=== PATIENT | female | born 1970 | race Caucasian/White ===

== ENCOUNTER → 2016-12-14 | Outpatient (CLI) | payer OTHER ==
[~2016-12-14] MED LIST: CALC-250 PO; CHOL100048 PO; EST.1TD TOP; ESTR-32 PO; FLUO10CA19 PO; HYDR25TA4 PO; IBP200T; IBP800T PO; IBUP-30 PO; LEVO25TA5 PO; MULT-608 PO; NATURE-THROID PO; OMEP40CA36 PO; TOPI100T11 PO; TPR100T; TRAM-21 PO
--- NOTE | 2016-12-17 20:00 | Diagnostic Imaging Report ---
Bilateral screening mammogram. The current study was also evaluated with a Computer Aided Detection (CAD) system. INDICATION: Screening. No current complaints stated on the questionnaire. COMPARISON: 11/10/15. FINDINGS: The breasts are composed of heterogeneously dense parenchyma which may decrease mammographic sensitivity. There are occasional benign-appearing calcifications seen. Allowing for technique and positional differences, no suspicious change is seen. IMPRESSION: No significant change. ACR BI-RADS Category 2: Benign findings. Result letter will be mailed to the patient. Note: At least 10% of breast cancer is not imaged by mammography. Dictated by: Dictated on workstation # [id number]
== END ==
LOC: RAD 13:47
PROVIDERS: ATTEND Nurse Practitioner Family
DX: Z12.31 Encounter for screening mammogram for malignant neoplasm of breast (principal)
CPT/HCPCS: 77067

== ENCOUNTER → 2017-10-28 | Outpatient (CLI) | payer OTHER ==
--- NOTE | 2017-10-28 09:46 | Diagnostic Imaging Report ---
PROCEDURE: CT sinuses without contrast TECHNIQUE: Multiple contiguous axial images were obtained through the sinuses without the use of intravenous contrast. Coronal and sagittal reformations were then performed. INDICATION: Chronic sinusitis The maxillary sinuses are clear. Ostiomeatal units are patent. Ethmoid air cells are clear. Sphenoid sinuses clear. Frontal sinuses clear. There is mild deviation of the nasal septum to the right. IMPRESSION: Slight deviation of the nasal septum. CT paranasal sinuses otherwise unremarkable. Dictated by: Dictated on workstation # [id number]
== END ==
LOC: RAD 08:11
PROVIDERS: ATTEND Otolaryngology Otolaryngology/Facial Plastic Surgery
DX: J32.9 Chronic sinusitis, unspecified (principal)
CPT/HCPCS: 70486

== ENCOUNTER → 2019-08-03 | Outpatient (CLI) | payer OTHER ==
[~2019-08-03] MED LIST changes: -ESTR-32 PO; +ESTR-85 PO
[2019-08-03 08:02] LABS: ALANINE AMINOTRANSFERASE 20 U/L (0-55); ALBUMIN 4.2 GM/DL (3.2-4.5); ALKALINE PHOSPHATASE 100 U/L (40-136); BILIRUBIN,TOTAL 0.7 MG/DL (0.1-1.0); BUN/CREATININE RATIO 12; CALCIUM 9.5 MG/DL (8.5-10.1); CARBON DIOXIDE 26 MMOL/L (21-32); CHLORIDE 106 MMOL/L (98-107); CHOLESTEROL 143 MG/DL (< 200); CREATININE SERUM 0.82 MG/DL (0.60-1.30); GFR ESTIMATED > 60; GLUCOSE 101 MG/DL (70-105); HDL CHOLESTEROL 54 MG/DL (40-60); POTASSIUM 4.3 MMOL/L (3.6-5.0); SODIUM 142 MMOL/L (135-145); TOTAL PROTEIN 7.1 GM/DL (6.4-8.2); TRIGLYCERIDES 96 MG/DL (<150); VLDL CHOLESTEROL 19 MG/DL (5-40)
== END ==
LOC: LAB 07:27
PROVIDERS: ATTEND Nurse Practitioner Primary Care
DX: I10 Essential (primary) hypertension (principal); E03.9 Hypothyroidism, unspecified; R73.03 Prediabetes
CPT/HCPCS: 36415; 80053; 80061; 84443

== ENCOUNTER → 2020-01-26 | Outpatient (CLI) | payer OTHER ==
[~2020-01-26] MED LIST changes: -ESTR-85 PO; -FLUO10CA19 PO; +FLUO10CA30 PO; +OMEP40CA27 PO; -OMEP40CA36 PO; +SYNTEST.HS PO
--- NOTE | 2020-01-26 17:01 | Diagnostic Imaging Report ---
EXAMINATION: Digital mammogram bilateral screening with CAD. INDICATION: Screening. COMPARISON: This study is compared to the prior exams of 12/14/2016 and 11/10/2015. PERSONAL HISTORY: At this time, there are no current complaints. FINDINGS: There are scattered fibronodular densities in both breasts which could obscure a lesion. There is a 5 mm nodular density in the mid lateral aspect of the right breast at posterior depth. This nodular density does not have a threatening appearance but was not present on the prior exam. I would recommend that compression views of this area be obtained in the CC and ML projections to better characterize this finding. Ultrasound should also be performed. The left breast shows no primary or secondary sign of malignancy. IMPRESSION: Additional mammographic views and ultrasound of the right breast would be recommended for further study. ACR BI-RADS Category 0: Incomplete. (Needs additional imaging evaluation). Result letter will be mailed to the patient. Note: At least 10% of breast cancer is not imaged by mammography. Dictated by: Dictated on workstation # [id number]
== END ==
LOC: RAD 07:16
PROVIDERS: ATTEND Nurse Practitioner Family
DX: Z12.31 Encounter for screening mammogram for malignant neoplasm of breast (principal); N63.10 Unspecified lump in the right breast, unspecified quadrant
CPT/HCPCS: 77063; 77067

== ENCOUNTER → 2020-02-03 | Outpatient (CLI) | payer OTHER ==
--- NOTE | 2020-02-03 13:16 | Diagnostic Imaging Report ---
INDICATION: Right breast density. Patient presents for additional views. COMPARISON: Correlation is made with the recent screening study from 01/26/2020 as well as mammograms dating back to 2017. TECHNIQUE: Unilateral right 2D and 3D diagnostic mammography was performed including spot compression CC and ML as well as conventional 90 degree lateral views. FINDINGS: There is some mild persistent nodular density in the posterior and outer right breast on the CC spot compression view. No definite density on the lateral views is seen. No suspicious calcifications are identified. IMPRESSION: Mild persistent density in the outer right breast at mid to posterior depth. This appears to be inferiorly located on the tomographic images and further evaluation of the lower outer right breast with ultrasound is recommended and will be performed today. ACR BI-RADS Category 0: Incomplete. (Needs additional imaging evaluation). Result letter will be mailed to the patient. Note: At least 10% of breast cancer is not imaged by mammography. Dictated by: Dictated on workstation # [id number]
--- NOTE | 2020-02-03 13:39 | Diagnostic Imaging Report ---
INDICATION: Right breast density. COMPARISON: Correlation is made with the diagnostic mammogram from earlier this same day. FINDINGS: Sonographic interrogation of the lower outer right breast was performed. No sonographic abnormality is detected. No solid or cystic mass is detected. IMPRESSION: No sonographic abnormality is detected. The patient may return to routine annual screening mammography. ACR BI-RADS Category 1: Negative. Dictated by: Dictated on workstation # [id number]
== END ==
LOC: RAD 12:48
PROVIDERS: ATTEND Nurse Practitioner Primary Care
DX: R92.8 Other abnormal and inconclusive findings on diagnostic imaging of breast (principal)

== ENCOUNTER 2020-08-08 05:31 | Outpatient (RCR) | payer OTHER ==
[~2020-08-08] VITALS: Ht 157.5 cm; Wt 76.4 kg
[~2020-08-08 05:31] MED LIST changes: +ATOR40TA70 PO; -FLUO10CA30 PO; +FLUO10CA31 PO; +FLUO40CA PO; +PROP20TA5 PO; +TOPI25TA10 PO
[2020-08-08] MEDS ORDERED: CETI10TA49 PO (09:19)
[2020-08-08] MEDS ORDERED: FAMO20TA3 PO (09:19)
[2020-08-08] MEDS ORDERED: FLUT16SP22 NSEACH (09:19)
[2020-08-08] MEDS ORDERED: ONDN4T PO (09:19)
== END 2020-08-08 09:18 | disposition home or self-care (01) ==
LOC: PREOP 05:31
PROVIDERS: ATTEND Urology
DX: Z01.812 Encounter for preprocedural laboratory examination (principal); N81.10 Cystocele, unspecified; N39.3 Stress incontinence (female) (male); Z20.828 Contact with and (suspected) exposure to other viral communicable diseases
CPT/HCPCS: 87635

== ENCOUNTER 2020-08-10 07:37 | Day surgery (SDC) | payer OTHER ==
[2020-08-10] VITALS (12 sets, daily range): BP systolic 107–124; BP diastolic 56–92
[~2020-08-10] VITALS: Ht 157.5 cm; Wt 76.4 kg
--- NOTE | 2020-08-10 07:04 | Progress Note-Pre Operative ---
Pre-Operative Progress Note H&P Reviewed The H&P was reviewed, patient examined and no changes noted. Date Seen by Provider: Aug 10, 2020 Time Seen by Provider: 07:42 Date H&P Reviewed: Aug 10, 2020 Time H&P Reviewed: 07:42 Pre-Operative Diagnosis: CYSTOCELE, INCONTINENCE, AND OAB ASHWINI DAVIS MD Aug 10, 2020 07:04
[~2020-08-10 07:37] MED LIST changes: +CETI10TA49 PO; +FAMO20TA3 PO; +FLUT16SP22 NSEACH; +ONDN4T PO
--- NOTE | 2020-08-10 07:42 | Progress Note-Post Operative ---
Post-Operative Progess Note Surgeon (s)/Master Lay Out Specialist (s) Surgeon ASHWINI DAVIS MD Master Lay Out Specialist: NONE Pre-Operative Diagnosis CYSTOCELE, INCONTINENCE, AND OAB Post-Operative Diagnosis SAME Procedure & Operative Findings Date of Procedure 08/10/20 Procedure Performed/Findings ANTERIOR REPAIR, PVS, AND CYSTOCOPY Anesthesia Type GENERAL Estimated Blood Loss Estimated blood loss (mL): 50cc Specimens/Packing Specimens Removed NONE PackinGM ESTRACE VAGINAL PACK ASHWINI DAVIS MD Aug 10, 2020 07:42
[2020-08-10] MEDS ORDERED: ESTRADIOL VAGINAL CREAM 42.5 GM (ESTRACE) VG ONE (07:47)
[2020-08-10] MEDS ORDERED: LIDOCAINE/EPI 1%-1:100,000 (XYLOCAINE) 20ML ONE (07:48)
[2020-08-10] MEDS ORDERED: cefTRIAXone 1,000 MG IV (ROCEPHIN) VIAL ONE (07:55)
[2020-08-10] MEDS ORDERED: WATER (STERILE) FOR INJECTION 10 ML ONE (07:55)
[2020-08-10] MEDS ORDERED: ONDANSETRON 4 MG/2 ML (SDV) Z0FRAN ONE ×2 (07:56→08:02)
[2020-08-10] MEDS ORDERED: SCOPOLAMINE 1.5 MG (TRANSDERM-SCOP) PATCH ONE (07:56)
[2020-08-10] MEDS ORDERED: SCOPOLAMINE 1.5 MG (TRANSDERM-SCOP) PATCH TOP ONE (08:00)
[2020-08-10] MEDS ORDERED: FAMOTIDINE 20MG/2ML IV (PEPCID) IV ONE (08:00)
[2020-08-10] MEDS ORDERED: MIDAZOLAM 2 MG/2 ML (VERSED) VIAL ONE (08:00)
[2020-08-10] MEDS ORDERED: ONDANSETRON 4 MG/2 ML (SDV) Z0FRAN IV ONE (08:00)
[2020-08-10] MEDS ORDERED: fentaNYL INJECTION 100 MCG/2 ML AMP ONE (08:01)
[2020-08-10] MEDS ORDERED: LIDOCAINE PF 2% 5 ML (XYLOCAINE) VIAL ONE (08:02)
[2020-08-10] MEDS ORDERED: proPOfol 200 MG/20 ML (DIPRIVAN) VIAL IV ONE (08:02)
[2020-08-10] MEDS ORDERED: NEOSTIGMINE 3 MG/3 ML VIAL ONE (08:03)
[2020-08-10] MEDS ORDERED: SEVOFLURANE (ULTANE) 15 ML INHAL SOLN ONE (08:03)
[2020-08-10] MEDS ORDERED: GLYCOPYRROLATE 0.2 MG/ML (ROBINUL) 2 ML VIAL ONE ×3 (08:03→08:57)
[2020-08-10] MEDS ORDERED: ROCURONIUM 10 MG/ML 5 ML SYRINGE IV ONE (08:03)
[2020-08-10] MEDS: LACTATED RINGERS 1,000 ML IV SCH ×3 (08:04→19:37)
[2020-08-10] MEDS ORDERED: LACTATED RINGERS 1,000 ML IV PRN (08:07)
[2020-08-10] MEDS ORDERED: cefTRIAXone FOR IV USE 1,000 MG in WATER (STERILE) FOR INJECTION 10 ML IV ONE (08:15)
[2020-08-10] MEDS ORDERED: ONDANSETRON 4 MG TABLET PO PRN (08:15)
[2020-08-10] MEDS ORDERED: ATROPINE INJ 0.4 MG/ML SDV ONE (08:57)
[2020-08-10] MEDS ORDERED: NON-FORMULARY MEDICATION 1 EA EA (Fluoxetine HCl 40 MG) PO SCH (09:00)
[2020-08-10] MEDS ORDERED: HYDROmorphone 2 MG/ML VIAL (DILAUDID) IV ONE (09:30)
[2020-08-10] MEDS ORDERED: ONDANSETRON 4 MG/2 ML (SDV) Z0FRAN IVP PRN (09:30)
--- NOTE | 2020-08-10 10:20 | NUR ---
Received from FELI Carreno following anterior repair, and pubo vaginal sling. Alert and oriented. Report for Sukhdev Coker RN.
--- NOTE | 2020-08-10 10:34 | OPERATIVE REPORT ---
DATE OF SERVICE: 08/10/2020 PREOPERATIVE DIAGNOSIS: Cystocele and urinary incontinence with overactive bladder. POSTOPERATIVE DIAGNOSIS: Cystocele and urinary incontinence with overactive bladder. OPERATION PERFORMED: Anterior repair, pubovaginal sling and cystoscopy. SURGEON: Marcell Davis MD. ANESTHESIA: General. COMPLICATIONS: None. DESCRIPTION OF PROCEDURE: Under satisfactory general anesthesia, the patient in extended lithotomy position, genitalia, abdomen and thigh were prepped and draped in the usual sterile fashion with separate vaginal prep. Tate catheter was inserted, draining clear urine and put to dependent drainage. The anterior vaginal wall was infiltrated with 2% lidocaine with epinephrine. A midline incision was made proximal to the meatus carried down with dissection. Dissected sharply off the underlying fascia, it was noted that the vaginal wall was kind of thin and the fascia not strong; however, I was able to dissect it. I dissected the mucosa off the fascia, which was then approximated with interrupted 2-0 Vicryl giving a good support to the bladder. Then, I passed the Solyx device on both sides using the described technique. The sling was sitting nicely under the mid urethra with no twist, no tension and passage of a curved hemostat easily between it and the underlying tissue. I removed the Tate catheter to perform cystoscopy to confirm the integrity of the bladder, ureteral orifices and urethra with no foreign body. I left the bladder half full on the way out. I inspected the mid urethra and the urethra was normal and the sling was lying under the mid urethra. I performed a manual Valsalva maneuver that was negative. I reinserted the Tate catheter draining clear fluid. The excess vaginal mucosa was excised sharply and then the rest was approximated with a running 2-0 Vicryl Rapide type suture. Estimated blood loss was 50 mL, none of which was replaced. Needle, sponge and instruments counts were correct x2. The patient tolerated the procedure and anesthesia well and was sent to recovery room in stable condition. Job ID: [id number] DocumentID: [id number] Dictated Date: 08/10/2020 09:24:47 Rivet Machine Operator Date: 08/10/2020 10:34:04 Dictated By: MARCELL DAVIS MD
[2020-08-10] MEDS ORDERED: IBUPROFEN 600 MG (MOTRIN) TAB PO PRN (13:15)
[2020-08-10] MEDS: FAMOTIDINE 20 MG (PEPCID) TABLET PO SCH (15:50)
[2020-08-10] MEDS: PROPRANOLOL 20 MG (INDERAL) TABLET PO SCH ×2 (15:50→21:02)
[2020-08-10] MEDS: FLUTICASONE NASAL SPRAY (FLONASE) 16 GM BTL NS SCH (15:50)
[2020-08-10] MEDS: LEVOTHYROXINE 25 MCG (LEVOTHROID) TAB PO SCH (15:50)
[2020-08-10] MEDS: toPIRamate 25 MG (TOPAMAX) TAB PO SCH (15:51)
--- NOTE | 2020-08-10 19:30 | NUR ---
Pt laying in bed watching tv. Pt asking about diet, denies nausea and had liquid tray for dinner, tolerated well. Fresh ice water given and sandwich tray given. Tate cath to DD. 750ml drained from chamber. Plan of care updated with pt.
[2020-08-10] MEDS ORDERED: NON-FORMULARY MEDICATION 1 EA EA (Cetirizine HCl (Zyrtec) 10 MG) PO SCH (21:00)
[2020-08-10] MEDS ORDERED: LORATADINE (CLARITIN) 10 MG TAB PO SCH (21:00)
--- NOTE | 2020-08-10 23:00 | NUR ---
Pt laying in bed awake, irwin cont to DD. Pt denies needs at this time.
--- NOTE | 2020-08-11 01:57 | NUR ---
Pt sleeping at this time, aroused per rn, denies needs.
[2020-08-11 03:40] VITALS: BP 106/55
--- NOTE | 2020-08-11 06:54 | Anesthesia-General Post-Op ---
General Patient Condition Mental Status/LOC: Same as Preop Cardiovascular: Satisfactory Nausea/Vomiting: Absent Respiratory: Satisfactory Pain: Controlled Complications: Absent Post Op Complications Complications None Follow Up Care/Instructions Patient Instructions None needed. Anesthesia/Patient Condition Patient Condition Patient is doing well, no complaints, stable vital signs, no apparent adverse anesthesia problems. No complications reported per nursing. ANDREI VILLALPANDO CRNA Aug 11, 2020 06:54
[2020-08-11] MEDS: LEVOTHYROXINE 25 MCG (LEVOTHROID) TAB PO SCH (07:53)
[2020-08-11] MEDS: FLUTICASONE NASAL SPRAY (FLONASE) 16 GM BTL NS SCH (07:53)
[2020-08-11] MEDS: PROPRANOLOL 20 MG (INDERAL) TABLET PO SCH (07:55)
[2020-08-11] MEDS ORDERED: LEVOFLOXACIN 250 MG/50 ML IVPB 50 ML IV SCH (07:56)
[2020-08-11] MEDS: FAMOTIDINE 20 MG (PEPCID) TABLET PO SCH (07:58)
[2020-08-11] MEDS: toPIRamate 25 MG (TOPAMAX) TAB PO SCH (07:58)
[2020-08-11 08:00] VITALS: BP 110/66
[2020-08-11] MEDS ORDERED: FLUOXETINE 40 MG CAPSULE PO SCH (09:00)
[2020-08-11] MEDS ORDERED: IBUP-1773 PO (10:31)
[2020-08-11] MEDS ORDERED: CIPR-225 PO (10:49)
[2020-08-11 11:15] VITALS: BP 110/66
--- NOTE | 2020-08-11 11:35 | NUR ---
Home instructions given with pt verbalizing understanding. To exit via wheelchair - accompanied by this RN.
--- NOTE | 2020-08-11 13:08 | Progress Note - Urology ---
Progress Note-Urology Progress Notes/Assess & Plan Progress/Assessment & Plan VOIDING WELL. DRY. PVR 42. HAPPY. HOME WITH INSTRUCTIONS Final Diagnosis CYSTOCELE AND INCONTINENCE ASHWINI DAVIS MD Aug 11, 2020 13:08
== END 2020-08-11 11:35 | disposition home or self-care (01) ==
LOC: SDC 07:37 → WS 10:21 → SDC 08-11 11:35
PROVIDERS: ATTEND Urology
DX: N81.10 Cystocele, unspecified (principal); N32.81 Overactive bladder; R32 Unspecified urinary incontinence; K21.9 Gastro-esophageal reflux disease without esophagitis; F32.9 Major depressive disorder, single episode, unspecified; G43.909 Migraine, unspecified, not intractable, without status migrainosus; E03.9 Hypothyroidism, unspecified; I10 Essential (primary) hypertension; Z79.899 Other long term (current) drug therapy; Z88.5 Allergy status to narcotic agent; Z88.8 Allergy status to other drugs, medicaments and biological substances; Z85.828 Personal history of other malignant neoplasm of skin
CPT/HCPCS: 57240; 57288; 87081; C1771

== ENCOUNTER 2020-10-21 16:13 | Emergency (ER) | payer OTHER ==
[~2020-10-21] VITALS: Ht 157 cm; Wt 77.0 kg
[~2020-10-21 16:13] MED LIST changes: +CIPR-225 PO; +IBUP-1773 PO
--- NOTE | 2020-10-21 17:05 | ED Respiratory ---
General Chief Complaint: Respiratory Problems Stated Complaint: SOB/BILAT LEG CRAMPS/LOW O2 Nursing Triage Note: PT REPORTS TO ED FOR SOB X'S 3 WEEKS AND CHEST PRESSURE X'S 1 WEEK. PT WAS TESTED EARLIER AT [facility] AND WAS NEGATIVE FOR FLU AND COVID. Source: patient Exam Limitations: no limitations History of Present Illness Date Seen by Provider: Oct 21, 2020 Time Seen by Provider: 17:05 Initial Comments Patient is a 50-year-old female who presents to the emergency room today with a chief complaint of feeling short of breath and having a cough for the last 3 we eks. Patient states that she has had some chest tightness and "pressure" over the course of the last week. Patient finally went and saw her primary care physician today had an influenza test and a Covid test and both were negative. Patient states that she received her second Covid vaccine around 29 September. She states her symptoms started shortly thereafter. Patient has never had a positive Covid test. Patient denies any fevers, chills, runny nose, URI type symptoms other than cough. She denies any abdominal pain, nausea, vomiting, diarrhea although she does have a little bit of posttussive emesis occasionally. Patient denies any recent prolonged immobility/travel. No history of DVT. She is having some bilateral calf cramping when she walks. She describes this as "like a mild charley horse". Patient reportedly ambulated at the clinic and was noted to have oxygen saturations of 91 to 92%. All other review of systems reviewed and negative except as stated above. Timing/Duration: getting worse Severity: moderate Prior Episodes/Possible Cause: occasional episodes Associated Symptoms: chest pain/soreness, muscle aches, shortness of breath Allergies and Home Medications Allergies Coded Allergies: codeine (Unverified Allergy, Mild, 12/24/08) naproxen (Unverified Allergy, Mild, 12/24/08) tramadol (Unverified Allergy, Mild, 12/24/08) aspirin (Unverified Allergy, Unknown, N/V, 07/12/15) hydrocodone (Unverified Allergy, Unknown, N/V, 07/12/15) morphine (Verified Allergy, Unknown, 08/03/20) Home Medications Atorvastatin Calcium 40 Mg Tablet, 40 MG PO DAILY, (Reported) Cetirizine HCl 10 Mg Tablet, 10 MG PO HS, (Reported) Ciprofloxacin HCl 500 Mg Tablet, 500 MG PO BID Prescribed by: ADAM CERDA on 08/11/20 1049 Famotidine 20 Mg Tablet, 20 MG PO DAILY, (Reported) Fluoxetine HCl 40 Mg Capsule, 40 MG PO DAILY, (Reported) Fluticasone Propionate 16 Gm [place].susp, 1 SPRAY NSEACH DAILY, (Reported) Ibuprofen 600 Mg Tablet, 600 MG PO Q6H PRN for PAIN-MILD, (Reported) Levothyroxine Sodium 25 Mcg Tablet, 25 MCG PO DAILY, (Reported) Ondansetron HCl 4 Mg Tab, 4 MG PO Q6H PRN for NAUSEA/VOMITING, (Reported) Propranolol HCl 20 Mg Tablet, 20 MG PO BID, (Reported) Topiramate 25 Mg Tablet, 25 MG PO DAILY, (Reported) Patient Home Medication List Home Medication List Reviewed: Yes Review of Systems Review of Systems Constitutional: see HPI EENTM: no symptoms reported Respiratory: cough, short of breath Cardiovascular: chest pain (chest pressure/tightniess) Gastrointestinal: no symptoms reported Genitourinary: no symptoms reported : No Musculoskeletal: muscle cramps Skin: no symptoms reported All Other Systems Reviewed Negative Unless Noted: Yes Past Bzqoybw-Xjqetm-Ksfkza Hx Patient Social History Alcohol Use: Denies Use Smoking Status: Never a Smoker Recent Infectious Disease Expo: No Recent Hopitalizations: No Immunizations Up To Date Date of Influenza Vaccine: Jun 23, 2020 Seasonal Allergies Seasonal Allergies: Yes Past Medical History Surgeries: Yes (upper teeth pulled) Adenoidectomy, Section, Gallbladder, Hysterectomy, Oophorectomy, Orthopedic, Tonsillectomy Respiratory: No Currently Using CPAP: No Currently Using BIPAP: No Cardiac: Yes Chronic Edema/Swelling, Hypertension Neurological: Yes Headaches /Migraines Reproductive Disorders: Yes (MENORRHAGIA) Female Reproductive Disorders: Menstrual Problems PLANT MACHINIST History: Hysterectomy Genitourinary: Yes (cystocele) Gastrointestinal: Yes Gastroesophageal Reflux Musculoskeletal: No Endocrine: Yes Hypothyroidsim HEENT: Yes (denture) Loss of Vision: Denies Cancer: Yes (right eyebrow) Skin Psychosocial: Yes Depression Integumentary: No Blood Disorders: No Family Medical History FH: COPD (chronic obstructive pulmonary disease) G8 BROTHER FH: aortic stenosis G8 BROTHER (50's) FH: colon cancer 19 FATHER Myocardial infarction 19 MOTHER (79) No Pertinent Family Hx Physical Exam Vital Signs - First Documented 10/21/20 16:18 Temp 35.7 Pulse 75 Resp 20 B/P (MAP) 158/89 (112) Pulse Ox 100 O2 Delivery Room Air Capillary Refill : Less Than 3 Seconds Height: 0'62.00" Weight: 154lbs. 8.0oz. [id number]; 31.00 BMI Method: General Appearance: WD/WN, no apparent distress Eyes: Bilateral Eye Normal Inspection, Bilateral Eye PERRL, Bilateral Eye EOMI HEENT: PERRL/EOMI Neck: full range of motion Respiratory: lungs clear, normal breath sounds, no respiratory distress, no accessory muscle use Cardiovascular: regular rate, rhythm, no murmur Gastrointestinal: normal bowel sounds, non tender, soft Extremities: normal range of motion, non-tender, normal inspection, no pedal edema, no calf tenderness, normal capillary refill Neurologic/Psychiatric: no motor/sensory deficits, alert, normal mood/affect, oriented x 3 Skin: normal color, warm/dry Progress/Results/Core Measures Suspected Sepsis Recent Fever Within 48 Hours: No Infection Criteria Present: None New/Unexplained Altered Menta: No Sepsis Screen: No Definite Risk SIRS Temperature: Pulse: 75 Respiratory Rate: 20 Laboratory Tests 10/21/20 16:30: White Blood Count 6.3 Blood Pressure 158 /89 Mean: 112 Laboratory Tests 10/21/20 16:30: Creatinine 0.93, Platelet Count 302 Results/Orders Lab Results Laboratory Tests Test 10/21/20 16:30 Range/Units White Blood Count 6.3 4.3-11.0 10^3/uL Red Blood Count 4.28 3.80-5.11 10^6/uL Hemoglobin 12.7 11.5-16.0 g/dL Hematocrit 40 35-52 % Mean Corpuscular Volume 94 80-99 fL Mean Corpuscular Hemoglobin 30 25-34 pg Mean Corpuscular Hemoglobin Concent 32 32-36 g/dL Red Cell Distribution Width 13.6 10.0-14.5 % Platelet Count 302 130-400 10^3/uL Mean Platelet Volume 10.5 9.0-12.2 fL Immature Granulocyte % (Auto) 0 % Neutrophils (%) (Auto) 52 42-75 % Lymphocytes (%) (Auto) 36 12-44 % Monocytes (%) (Auto) 9 0-12 % Eosinophils (%) (Auto) 2 0-10 % Basophils (%) (Auto) 1 0-10 % Neutrophils # (Auto) 3.3 1.8-7.8 10^3/uL Lymphocytes # (Auto) 2.3 1.0-4.0 10^3/uL Monocytes # (Auto) 0.6 0.0-1.0 10^3/uL Eosinophils # (Auto) 0.1 0.0-0.3 10^3/uL Basophils # (Auto) 0.1 0.0-0.1 10^3/uL Immature Granulocyte # (Auto) 0.0 0.0-0.1 10^3/uL D-Dimer 0.45 0.00-0.49 UG/ML Sodium Level 138 135-145 MMOL/L Potassium Level 4.0 3.6-5.0 MMOL/L Chloride Level 105 98-107 MMOL/L Carbon Dioxide Level 23 21-32 MMOL/L Anion Gap 10 5-14 MMOL/L Blood Urea Nitrogen 17 7-18 MG/DL Creatinine 0.93 0.60-1.30 MG/DL Estimat Glomerular Filtration Rate > 60 BUN/Creatinine Ratio 18 Glucose Level 109 H 70-105 MG/DL Calcium Level 9.5 8.5-10.1 MG/DL Troponin I < 0.028 <0.028 NG/ML My Orders Orders - MINE PUENTES MD Ed Iv/Invasive Line Start (10/21/20 17:11) Cbc With Automated Diff (10/21/20 17:11) Basic Metabolic Panel (10/21/20 17:11) Fibrin Degradation Products (10/21/20 17:11) Chest 1 View, Ap/Pa Only (10/21/20 17:11) Ekg Tracing (10/21/20 17:12) Troponin I (10/21/20 17:28) Vital Signs/I&O 10/21/20 16:18 Temp 35.7 Pulse 75 Resp 20 B/P (MAP) 158/89 (112) Pulse Ox 100 O2 Delivery Room Air Capillary Refill : Less Than 3 Seconds Blood Pressure Mean: 112 Progress Note : Time: 17:26 Progress Note 50-year-old female with a chief complaint of chest tightness, shortness of breath, dropping her oxygen saturations down to 92% with exertion. Evaluation includes a physical exam, CBC, BMP, D-dimer, troponin, EKG and single view chest x-ray. Chest x-ray is reviewed and unremarkable. EKG shows a normal sinus rhythm at [address]-T wave changes over the precordium and lateral leads. CBC is normal, BMP is normal, D-dimer is below the upper limits of normal. Patient looks well satting 99% on room air while sitting comfortably in the bed. No clinical or objective findings to warrant further investigation at this time. No obvious acute coronary syndrome, no concern for acute pulmonary embolism, aortic dissection, pneumothorax, pneumonia. Patient will be discharged home with an albuterol inhaler. She is comfortable with this plan of care. Recommend lvgw-pub-vfjseho cough medications that include dextromethorphan. Per radiology the patient has mild infiltrate along the right lung base versus atelectasis. Secondary to all of her symptomatology I am going to go ahead and place her on a 5-day course of azithromycin to go along with her albuterol inhaler. All questions are sought and answered. Patient is stable for discharge. ECG Initial ECG Impression Date: Oct 21, 2020 Initial ECG Impression Time: 16:26 Initial ECG Rate: 81 Initial ECG Rhythm: Normal Sinus Initial ECG Intervals: Normal Initial ECG Impression: Nonspecific Changes Diagnostic Imaging Diagonstic Imaging: Xray Plain Films/CT/US/NM/MRI: chest Comments [facility]. [place], [place] NAME: JOYCE KELLY [facility] REC#: [id number] PT STATUS: REG ER : 1970 PHYSICIAN: MINE PUENTES MD ADMIT DATE: 10/21/20/ER Draft Date of Exam:10/21/20 CHEST 1 VIEW, AP/PA ONLY EXAM: Chest 1 view, AP/PA only. INDICATION: Shortness of breath. Cough. COMPARISON: Chest radiograph 07/12/2015. FINDINGS: Normal heart size and central pulmonary vascularity. Elevation of the right hemidiaphragm. There is mild atelectasis or infiltrate in the medial right lung base. No pleural effusion or pneumothorax. IMPRESSION: Elevation of the right hemidiaphragm with mild atelectasis or infiltrate in the medial right lung base. Dictated on workstation # [id number] Dict: 10/21/20 1727 Trans: 10/21/20 1733 [facility] [id number] Interpreted by: CHICO WELDON MD Departure Impression Primary Impression: Dyspnea on exertion Additional Impression: Pneumonia Qualified Codes: J18.9 - Pneumonia, unspecified organism Disposition: HOME, SELF-CARE Condition: Stable Departure-Patient Inst. Decision time for Depature: 17:52 Referrals: [facility] [place] (PCP/Family) Primary Care Physician Patient Instructions: Cough, Adult (DC) Add. Discharge Instructions: Continue your daily home medications as prescribed. Get an yaiz-quv-qkndfhc cough medication that contains dextromethorphan or "DM" to help alleviate cough. Use the albuterol inhaler 2 puffs as needed every 4-6 hours for shortness of breath, wheezing, chest tightness. Please follow-up with your primary care physician. Return to the emergency room for any worsening symptoms, worsening shortness of breath, chest pain or other emergent concerning symptoms. Scripts Albuterol Sulfate (PROAIR HFA) 1 Puff Puff 2 PUFF IH Q6H for shortness of breath, #1 PUFF 1 PUFF = 90 MCG Prov: MINE PUENTES MD 10/21/20 Azithromycin (Azithromycin) 250 Mg Tablet 250 MG PO UD, #6 TAB TAKE 2 TABLETS ON DAY ONE THEN TAKE 1 TABLET DAILY FOR FOUR MORE DAYS Prov: MINE PUENTES MD 10/21/20 MINE PUENTES MD Oct 21, 2020 17:05
[2020-10-21 17:19] LABS: BASOPHILS # (AUTO) 0.1 10^3/uL (0.0-0.1); BASOPHILS % (AUTO) 1 % (0-10); EOSINOPHILS # (AUTO) 0.1 10^3/uL (0.0-0.3); EOSINOPHILS % (AUTO) 2 % (0-10); HEMATOCRIT 40 % (35-52); HEMOGLOBIN 12.7 g/dL (11.5-16.0); LYMPHOCYTES # (AUTO) 2.3 10^3/uL (1.0-4.0); LYMPHOCYTES % (AUTO) 36 % (12-44); MEAN CORPUSCULAR HEMOGLOBIN 30 pg (25-34); MEAN CORPUSCULAR HGB CONC 32 g/dL (32-36); MEAN CORPUSCULAR VOLUME 94 fL (80-99); MEAN PLATELET VOLUME 10.5 fL (9.0-12.2); MONOCYTES # (AUTO) 0.6 10^3/uL (0.0-1.0); MONOCYTES % (AUTO) 9 % (0-12); NEUTROPHILS # (AUTO) 3.3 10^3/uL (1.8-7.8); NEUTROPHILS % (AUTO) 52 % (42-75); PLATELET COUNT 302 10^3/uL (130-400); WHITE BLOOD COUNT 6.3 10^3/uL (4.3-11.0)
[2020-10-21 17:25] LABS: CHLORIDE 105 MMOL/L (98-107); SODIUM 138 MMOL/L (135-145)
[2020-10-21 17:26] LABS: CALCIUM 9.5 MG/DL (8.5-10.1); GLUCOSE 109 MG/DL (70-105)
[2020-10-21 17:28] LABS: CARBON DIOXIDE 23 MMOL/L (21-32)
[2020-10-21 17:30] LABS: CREATININE SERUM 0.93 MG/DL (0.60-1.30); GFR ESTIMATED > 60
[2020-10-21 17:31] LABS: BUN/CREATININE RATIO 18
--- NOTE | 2020-10-21 17:33 | Diagnostic Imaging Report ---
EXAM: Chest 1 view, AP/PA only. INDICATION: Shortness of breath. Cough. COMPARISON: Chest radiograph 07/12/2015. FINDINGS: Normal heart size and central pulmonary vascularity. Elevation of the right hemidiaphragm. There is mild atelectasis or infiltrate in the medial right lung base. No pleural effusion or pneumothorax. IMPRESSION: Elevation of the right hemidiaphragm with mild atelectasis or infiltrate in the medial right lung base. Dictated by: Dictated on workstation # [id number]
[2020-10-21] MEDS ORDERED: RT-ALBUINH IH (17:56)
[2020-10-21] MEDS ORDERED: AZIT250T12 PO (17:56)
[2020-10-21 18:02] VITALS: BP 142/86
== END 2020-10-21 18:01 | disposition home or self-care (01) ==
LOC: EDUNIT# 16:13 → ER 16:15
DX: R06.09 Other forms of dyspnea (principal); J18.9 Pneumonia, unspecified organism; I10 Essential (primary) hypertension; K21.9 Gastro-esophageal reflux disease without esophagitis; F32.9 Major depressive disorder, single episode, unspecified; G43.909 Migraine, unspecified, not intractable, without status migrainosus; E03.9 Hypothyroidism, unspecified; Z88.5 Allergy status to narcotic agent; Z88.8 Allergy status to other drugs, medicaments and biological substances; Z85.828 Personal history of other malignant neoplasm of skin; Z82.49 Family history of ischemic heart disease and other diseases of the circulatory system; Z80.0 Family history of malignant neoplasm of digestive organs; Z79.890 Hormone replacement therapy
CPT/HCPCS: 36415; 71045; 80048; 84484; 85025; 85379

== ENCOUNTER → 2020-10-27 | Outpatient (CLI) | payer OTHER ==
[~2020-10-27] MED LIST changes: +AZIT250T12 PO; +CATHETER FLUSH 10 ML SYR IV PRN; +HOLD METFORMIN - RECEIVED CONTRAST 20 ML VIAL IV SCH; +IOHEXOL 350 MG/ML 100 ML (OMNIPAQUE 350) VIAL IV ONE; +NS 100 ML (IVPB) BAG IV ONE; +RT-ALBUINH IH
--- NOTE | 2020-10-27 16:31 | Diagnostic Imaging Report ---
PROCEDURE: CT angiography of the chest with contrast. TECHNIQUE: Multiple contiguous axial images were obtained through the chest after uneventful bolus administration of intravenous contrast. 3D reconstructed CTA MIP acquisitions were also performed. Auto Exposure Controls were utilized during the CT exam to meet ALARA standards for radiation dose reduction. INDICATION: Chest pain, shortness of breath Lungs are clear. There are no effusions or pneumothoraces. There is no evidence of right ventricular strain. There are no pulmonary emboli. Aorta is unremarkable. There is no hilar or mediastinal lymphadenopathy. IMPRESSION: Negative CTA chest Dictated by: Dictated on workstation # [id number]
== END ==
LOC: RAD 15:53
PROVIDERS: ATTEND Nurse Practitioner Family
DX: R07.9 Chest pain, unspecified (principal); R06.02 Shortness of breath
CPT/HCPCS: 71275

== ENCOUNTER 2020-10-28 13:26 | Emergency (ER) | payer OTHER ==
[~2020-10-28] VITALS: Ht 157 cm; Wt 78.0 kg
[~2020-10-28 13:26] MED LIST changes: -CATHETER FLUSH 10 ML SYR IV PRN; -HOLD METFORMIN - RECEIVED CONTRAST 20 ML VIAL IV SCH; -IOHEXOL 350 MG/ML 100 ML (OMNIPAQUE 350) VIAL IV ONE; -NS 100 ML (IVPB) BAG IV ONE
[2020-10-28 14:32] LABS: BASOPHILS % (AUTO) 1 % (0-10); EOSINOPHILS # (AUTO) 0.1 10^3/uL (0.0-0.3); EOSINOPHILS % (AUTO) 2 % (0-10); HEMATOCRIT 42 % (35-52); HEMOGLOBIN 13.5 g/dL (11.5-16.0); LYMPHOCYTES # (AUTO) 2.1 X 10^3 (1.0-4.0); LYMPHOCYTES % (AUTO) 38 % (12-44); MEAN CORPUSCULAR HEMOGLOBIN 30 pg (25-34); MEAN CORPUSCULAR HGB CONC 33 g/dL (32-36); MEAN CORPUSCULAR VOLUME 92 fL (80-99); MEAN PLATELET VOLUME 10.1 fL (9.0-12.2); MONOCYTES # (AUTO) 0.5 X 10^3 (0.0-1.0); MONOCYTES % (AUTO) 9 % (0-12); NEUTROPHILS # (AUTO) 2.7 X 10^3 (1.8-7.8); NEUTROPHILS % (AUTO) 50 % (42-75); PLATELET COUNT 314 10^3/uL (130-400); WHITE BLOOD COUNT 5.4 10^3/uL (4.3-11.0)
[2020-10-28 14:35] LABS: ALBUMIN 4.3 GM/DL (3.2-4.5); CHLORIDE 108 MMOL/L (98-107); SODIUM 139 MMOL/L (135-145)
[2020-10-28 14:36] LABS: CALCIUM 9.3 MG/DL (8.5-10.1)
[2020-10-28 14:38] LABS: GLUCOSE 116 MG/DL (70-105); TOTAL PROTEIN 7.5 GM/DL (6.4-8.2)
[2020-10-28 14:39] LABS: BILIRUBIN,TOTAL 0.9 MG/DL (0.1-1.0); CARBON DIOXIDE 22 MMOL/L (21-32)
[2020-10-28 14:41] LABS: ALKALINE PHOSPHATASE 117 U/L (40-136); CREATININE SERUM 0.86 MG/DL (0.60-1.30); GFR ESTIMATED > 60
--- NOTE | 2020-10-28 14:41 | ED General ---
General Chief Complaint: Respiratory Problems Stated Complaint: SOB COUGH Nursing Triage Note: TO ROOM 10 IN COVID PERCAUTIONS. DX WITH PNEMONIA LAST WEEK ET WAS COVID AND FLU NEG LAST WEEK. STATES SHE HAD A CT YESTERDAY THAT WAS NEG. 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 Over the past week she has experienced some intermittent chest tightness which has now dissipated. She was treated last week for pneumonia with steroids and a azithromycin.. She had a CT angiogram of the chest yesterday which showed no pneumonia or pulmonary emboli. There were no groundglass opacities. Patient has had a negative Covid screens in the past. She has been vaccinated x2. She denies any exacerbating or alleviating factors. Starting yesterday she developed pain in the right chest that radiates up to the neck. This area is tender to palpation. She also has developed some headaches as well. She has experienced intermittent cramping of her calfs. Yesterday she developed some pain in the anterior right distal thigh and in the right calf. She also reports stumbling multiple times recently in feeling like her feet catch on the floor. She has no apparent focal neurologic deficits on exam. She reports feeling dizzy when leaving the CT exam yesterday. Allergies and Home Medications Allergies Coded Allergies: codeine (Unverified Allergy, Mild, 12/24/08) naproxen (Unverified Allergy, Mild, 12/24/08) tramadol (Unverified Allergy, Mild, 12/24/08) aspirin (Unverified Allergy, Unknown, N/V, 07/12/15) hydrocodone (Unverified Allergy, Unknown, N/V, 07/12/15) morphine (Verified Allergy, Unknown, 08/03/20) Home Medications Albuterol Sulfate 1 Puff Puff, 2 PUFF IH Q6H 1 PUFF = 90 MCG Prescribed by: MINE PUENTES on 10/21/20 5771 Atorvastatin Calcium 40 Mg Tablet, 40 MG PO DAILY, (Reported) Azithromycin 250 Mg Tablet, 250 MG PO UD TAKE 2 TABLETS ON DAY ONE THEN TAKE 1 TABLET DAILY FOR FOUR MORE DAYS Prescribed by: MINE PUENTES on 10/21/20 175 Cetirizine HCl 10 Mg Tablet, 10 MG PO HS, (Reported) Ciprofloxacin HCl 500 Mg Tablet, 500 MG PO BID Prescribed by: ADAM CERDA on 08/11/20 1049 Famotidine 20 Mg Tablet, 20 MG PO DAILY, (Reported) Fluoxetine HCl 40 Mg Capsule, 40 MG PO DAILY, (Reported) Fluticasone Propionate 16 Gm [place].susp, 1 SPRAY NSEACH DAILY, (Reported) Ibuprofen 600 Mg Tablet, 600 MG PO Q6H PRN for PAIN-MILD, (Reported) Levothyroxine Sodium 25 Mcg Tablet, 25 MCG PO DAILY, (Reported) Ondansetron HCl 4 Mg Tab, 4 MG PO Q6H PRN for NAUSEA/VOMITING, (Reported) Propranolol HCl 20 Mg Tablet, 20 MG PO BID, (Reported) Topiramate 25 Mg Tablet, 25 MG PO DAILY, (Reported) Patient Home Medication List Home Medication List Reviewed: Yes Review of Systems Review of Systems Constitutional: see HPI EENTM: no symptoms reported Respiratory: no symptoms reported Cardiovascular: see HPI Gastrointestinal: no symptoms reported Genitourinary: no symptoms reported Musculoskeletal: see HPI Skin: no symptoms reported Psychiatric/Neurological: See HPI Hematologic/Lymphatic: No Symptoms Reported Immunological/Allergic: no symptoms reported Past Lvqztqf-Tkpcwa-Cyrbet Hx Past Med/Social Hx: Reviewed Nursing Past Med/Soc Hx Patient Social History Alcohol Use: Rarely Uses Smoking Status: Never a Smoker Recent Infectious Disease Expo: No Recent Hopitalizations: No Immunizations Up To Date Date of Influenza Vaccine: Jun 23, 2020 Seasonal Allergies Seasonal Allergies: Yes Past Medical History Surgeries: Yes (upper teeth pulled) Adenoidectomy, Section, Gallbladder, Hysterectomy, Oophorectomy, Orthopedic, Tonsillectomy Respiratory: No Currently Using CPAP: No Currently Using BIPAP: No Cardiac: Yes Chronic Edema/Swelling, Hypertension Neurological: Yes Headaches /Migraines Reproductive Disorders: Yes (MENORRHAGIA) Female Reproductive Disorders: Menstrual Problems [employer]ING History: Hysterectomy Genitourinary: Yes (cystocele) Gastrointestinal: Yes Gastroesophageal Reflux Musculoskeletal: No Endocrine: Yes Hypothyroidsim HEENT: Yes (denture) Loss of Vision: Denies Cancer: Yes (right eyebrow) Skin Psychosocial: Yes Depression Integumentary: No Blood Disorders: No Family Medical History FH: COPD (chronic obstructive pulmonary disease) G8 BROTHER FH: aortic stenosis G8 BROTHER (50's) FH: colon cancer 19 FATHER Myocardial infarction 19 MOTHER (79) No Pertinent Family Hx Physical Exam Vital Signs Vital Signs - First Documented 10/28/20 13:30 Temp 35.7 Pulse 79 Resp 16 B/P (MAP) 155/90 (111) Pulse Ox 98 O2 Delivery Room Air Capillary Refill : Less Than 3 Seconds Height, Weight, BMI Height: 0'62.00" Weight: 154lbs. 8.0oz. 69.996257gv; 31.00 BMI Method: General Appearance: WD/WN, Mild Distress (Tearful) HEENT: PERRL/EOMI, Normal ENT Inspection Respiratory: Lungs Clear, Normal Breath Sounds, No Accessory Muscle Use, No Respiratory Distress, Other (Right upper chest tender to palpation) Cardiovascular: Regular Rate, Rhythm, No Edema, No Murmur Gastrointestinal: Normal Bowel Sounds, Soft, Tenderness (Slight in the right upper quadrant) Extremity: Normal Inspection, No Pedal Edema, Calf Tenderness (Right sided) Neurologic/Psychiatric: Alert, Oriented x3, No Motor/Sensory Deficits, liner replacer II- XII Norm as Tested, Other (Anxious, tearful) Skin: Normal Color, Warm/Dry Progress/Results/Core Measures Suspected Sepsis Recent Fever Within 48 Hours: No Infection Criteria Present: Documented Infection New/Unexplained Altered Menta: No Sepsis Screen: No Definite Risk SIRS Temperature: Pulse: 79 Respiratory Rate: 16 Laboratory Tests 10/28/20 13:40: White Blood Count 5.4 Blood Pressure 155 /90 Mean: 111 Laboratory Tests 10/28/20 13:40: Creatinine 0.86, Platelet Count 314, Total Bilirubin 0.9 10/28/20 14:45: INR Comment 1.0 Results/Orders Lab Results Laboratory Tests Test 10/28/20 13:40 10/28/20 14:45 Range/Units White Blood Count 5.4 4.3-11.0 10^3/uL Red Blood Count 4.53 3.80-5.11 10^6/uL Hemoglobin 13.5 11.5-16.0 g/dL Hematocrit 42 35-52 % Mean Corpuscular Volume 92 80-99 fL Mean Corpuscular Hemoglobin 30 25-34 pg Mean Corpuscular Hemoglobin Concent 33 32-36 g/dL Red Cell Distribution Width 13.5 10.0-14.5 % Platelet Count 314 130-400 10^3/uL Mean Platelet Volume 10.1 9.0-12.2 fL Immature Granulocyte % (Auto) 0 % Neutrophils (%) (Auto) 50 42-75 % Lymphocytes (%) (Auto) 38 12-44 % Monocytes (%) (Auto) 9 0-12 % Eosinophils (%) (Auto) 2 0-10 % Basophils (%) (Auto) 1 0-10 % Neutrophils # (Auto) 2.7 1.8-7.8 X 10^3 Lymphocytes # (Auto) 2.1 1.0-4.0 X 10^3 Monocytes # (Auto) 0.5 0.0-1.0 X 10^3 Eosinophils # (Auto) 0.1 0.0-0.3 10^3/uL Basophils # (Auto) 0.0 0.0-0.1 10^3/uL Immature Granulocyte # (Auto) 0.0 0.0-0.1 10^3/uL Sodium Level 139 135-145 MMOL/L Potassium Level 4.0 3.6-5.0 MMOL/L Chloride Level 108 H 98-107 MMOL/L Carbon Dioxide Level 22 21-32 MMOL/L Anion Gap 9 5-14 MMOL/L Blood Urea Nitrogen 13 7-18 MG/DL Creatinine 0.86 0.60-1.30 MG/DL Estimat Glomerular Filtration Rate > 60 BUN/Creatinine Ratio 15 Glucose Level 116 H 70-105 MG/DL Calcium Level 9.3 8.5-10.1 MG/DL Corrected Calcium 9.1 8.5-10.1 MG/DL Magnesium Level 2.2 1.6-2.4 MG/DL Total Bilirubin 0.9 0.1-1.0 MG/DL Aspartate Amino Transf (AST/SGOT) 21 5-34 U/L Alanine Aminotransferase (ALT/SGPT) 17 0-55 U/L Alkaline Phosphatase 117 40-136 U/L Lactate Dehydrogenase 277 H 125-220 U/L Myoglobin 29.4 10.0-92.0 NG/ML Troponin I < 0.028 <0.028 NG/ML C-Reactive Protein High Sensitivity 0.15 0.00-0.50 MG/DL Total Protein 7.5 6.4-8.2 GM/DL Albumin 4.3 3.2-4.5 GM/DL Thyroid Stimulating Hormone (TSH) 0.68 0.35-4.94 UIU/ML Free Thyroxine 1.04 0.70-1.48 NG/DL Coronavirus 2019 ([facility]EDIS) Negative Negative Prothrombin Time 13.3 12.2-14.7 SEC INR Comment 1.0 0.8-1.4 Activated Partial Thromboplast Time 29 24-35 SEC D-Dimer < 0.27 0.00-0.49 UG/ML My Orders Orders - ODILON GAMBOA MD Fibrin Degradation Products (10/28/20 14:21) Hs C Reactive Protein (10/28/20 14:21) LDH (10/28/20 14:21) Covid 19 Inhouse Test (10/28/20 14:21) Cbc With Automated Diff (10/28/20 14:23) Magnesium (10/28/20 14:23) Chest 1 View, Ap/Pa Only (10/28/20 14:23) Ekg Tracing (10/28/20 14:23) Comprehensive Metabolic Panel (10/28/20 14:23) Myoglobin Serum (10/28/20 14:23) Protime With Inr (10/28/20 14:23) Partial Thromboplastin Time (10/28/20 14:23) O2 (10/28/20 14:23) Monitor-Rhythm Ecg Trace Only (10/28/20 14:23) Ed Iv/Invasive Line Start (10/28/20 14:23) Troponin I (10/28/20 14:23) Thyroid Stimulating Hormone (10/28/20 14:49) Free T4 (Free Thyroxine) (10/28/20 14:49) Vital Signs/I&O 10/28/20 10/28/20 13:30 16:17 Temp 35.7 Pulse 79 68 Resp 16 16 B/P (MAP) 155/90 (111) 129/82 Pulse Ox 98 97 O2 Delivery Room Air Room Air Capillary Refill : Less Than 3 Seconds Blood Pressure Mean: 111 Progress Note : Progress Note Work-up was unremarkable. Vital signs were stable. Patient was given reassurance with return precautions and instructions to follow-up with her primary care provider. See discharge instructions. ECG Initial ECG Impression Date: Oct 28, 2020 Initial ECG Impression Time: 14:29 Initial ECG Rate: 68 Initial ECG Rhythm: Normal Sinus Initial ECG Intervals: Normal Comment Normal sinus rhythm with no ST elevation or depression. No abnormal intervals or axis deviation. Diagnostic Imaging Diagonstic Imaging: Xray Plain Films/CT/US/NM/MRI: chest Comments Chest x-ray viewed by me and report reviewed. See report below: NAME: JOYCE KELLY [facility] REC#: [id number] PT STATUS: REG ER : 1970 PHYSICIAN: ODILON GAMBOA MD ADMIT DATE: 10/28/20/ER Signed Date of Exam:10/28/20 CHEST 1 VIEW, AP/PA ONLY Indication: Chest pain Single AP view of the chest is obtained. Comparison is made study of 10/21/2020. FINDINGS: Heart size and pulmonary vascularity are within normal limits, and the lungs are clear, bilaterally. IMPRESSION: Unremarkable chest. Dictated by: Dictated on workstation # [id number] Dict: 10/28/20 1448 Trans: 10/28/20 1449 [id number] Interpreted by: CHRIS MANE MD Electronically signed by: CHRIS MANE MD 10/28/20 1449 Departure Impression Primary Impression: Chest wall pain Additional Impressions: Acute headache Qualified Codes: R51.9 - Headache, unspecified Dyspnea Qualified Codes: R06.00 - Dyspnea, unspecified Fatigue Qualified Codes: R53.83 - Other fatigue Disposition: 01 HOME, SELF-CARE Condition: Improved Departure-Patient Inst. Decision time for Depature: 16:13 Referrals: [facility] (PCP/Family) Primary Care Physician Patient Instructions: Chest Pain (DC) Add. Discharge Instructions: Drink plenty of clear liquids to stay well-hydrated. Get plenty of rest this weekend. You may take Tylenol and/or ibuprofen for your pain. Follow-up with your primary care provider in 1 to 2 weeks for a checkup. Call with questions or concerns. Return to the ER with worsening symptoms. All discharge instructions reviewed with patient and/or family. Voiced understanding. Copy Copies To 1: SAHARA ARTHUR JOSHUA T MD Oct 28, 2020 14:41
[2020-10-28 14:42] LABS: BUN/CREATININE RATIO 15
[2020-10-28 14:44] LABS: ALANINE AMINOTRANSFERASE 17 U/L (0-55); MAGNESIUM 2.2 MG/DL (1.6-2.4)
--- NOTE | 2020-10-28 14:51 | Diagnostic Imaging Report ---
Indication: Chest pain Single AP view of the chest is obtained. Comparison is made study of 10/21/2020. FINDINGS: Heart size and pulmonary vascularity are within normal limits, and the lungs are clear, bilaterally. IMPRESSION: Unremarkable chest. Dictated by: Dictated on workstation # [id number]
[2020-10-28 15:12] LABS: PROTHROMBIN TIME PATIENT 13.3 SEC (12.2-14.7)
[2020-10-28 15:25] LABS: FREE T4 (FREE THYROXINE) 1.04 NG/DL (0.70-1.48)
--- NOTE | 2020-10-28 15:28 | NUR ---
RESTING IN BED WITH NO COMPLAINTS AT THIS TIME.
--- NOTE | 2020-10-28 16:01 | NUR ---
IN TALKING TO THE PT AT THIS TIME.
[2020-10-28 16:17] VITALS: BP 129/82
== END 2020-10-28 16:17 | disposition home or self-care (01) ==
LOC: EDUNIT# 13:26 → ER 13:27
DX: R07.89 Other chest pain (principal); R51.9 Headache, unspecified; R06.00 Dyspnea, unspecified; R53.83 Other fatigue; F41.9 Anxiety disorder, unspecified; I10 Essential (primary) hypertension; F32.9 Major depressive disorder, single episode, unspecified; E03.9 Hypothyroidism, unspecified; K21.9 Gastro-esophageal reflux disease without esophagitis; Z88.5 Allergy status to narcotic agent; Z88.8 Allergy status to other drugs, medicaments and biological substances; Z85.828 Personal history of other malignant neoplasm of skin; Z80.0 Family history of malignant neoplasm of digestive organs; Z82.49 Family history of ischemic heart disease and other diseases of the circulatory system; Z20.822 Contact with and (suspected) exposure to COVID-19; Z79.890 Hormone replacement therapy
CPT/HCPCS: 71045; 80053; 83615; 83735; 83874; 84439; 84443; 84484; 85025; 85379; 85610; 85730; 86141; 99284; U0002; 36415; 87635; 93005

== ENCOUNTER → 2020-11-17 | Outpatient (CLI) | payer OTHER | LOC: CARD 14:00 | PROVIDERS: ATTEND Nurse Practitioner Family | DX: R06.09 Other forms of dyspnea (principal); R00.2 Palpitations | CPT/HCPCS: 93225; 93306 ==

== ENCOUNTER → 2020-12-13 | Outpatient (CLI) | payer OTHER ==
[~2020-12-13] VITALS: Ht 157 cm; Wt 79.0 kg
[~2020-12-13] MED LIST changes: +REGADENOSON 0.4 MG/5 ML SYR (LEXISCAN) IV ONE
[2020-12-13] MEDS: CATHETER FLUSH 10 ML SYR IV PRN ×2 (07:50→09:33)
[2020-12-13 09:31] VITALS: BP 138/91
== END ==
LOC: CARD 08:00
PROVIDERS: ATTEND Internal Medicine Cardiovascular Disease
DX: R06.09 Other forms of dyspnea (principal)
CPT/HCPCS: 78452; 93017; A9502

== ENCOUNTER 2021-01-17 13:00 | Day surgery (SDC) | payer OTHER ==
[~2021-01-17] VITALS: Ht 157 cm; Wt 82.0 kg
[2021-01-17 11:26] LABS: HEMOGLOBIN 12.7 g/dL (11.5-16.0); MEAN PLATELET VOLUME 9.6 fL (9.0-12.2); WHITE BLOOD COUNT 5.1 10^3/uL (4.3-11.0)
[2021-01-17 11:40] LABS: INR 0.9 (0.8-1.4); PROTHROMBIN TIME PATIENT 12.5 SEC (12.2-14.7)
[2021-01-17 11:44] LABS: ALANINE AMINOTRANSFERASE 16 U/L (0-55); ALBUMIN 3.9 GM/DL (3.2-4.5); ALKALINE PHOSPHATASE 116 U/L (40-136); BUN/CREATININE RATIO 12; CALCIUM 9.2 MG/DL (8.5-10.1); CARBON DIOXIDE 28 MMOL/L (21-32); CHLORIDE 109 MMOL/L (98-107); CHOLESTEROL 147 MG/DL (< 200); CREATININE SERUM 0.76 MG/DL (0.60-1.30); GFR ESTIMATED > 60; GLUCOSE 93 MG/DL (70-105); HDL CHOLESTEROL 67 MG/DL (40-60); POTASSIUM 4.1 MMOL/L (3.6-5.0); SODIUM 143 MMOL/L (135-145); TOTAL PROTEIN 6.8 GM/DL (6.4-8.2); TRIGLYCERIDES 51 MG/DL (<150); VLDL CHOLESTEROL 10 MG/DL (5-40)
--- NOTE | 2021-01-17 12:55 | Cardiac Procedure Note-CS/ASA ---
Pre-Procedure Note Pre-Op Procedure Note H&P Reviewed The H&P was reviewed, patient examined and no changes noted. Date H&P Reviewed: Jan 17, 2021 Time H&P Reviewed: 12:55 Conscious Sedation Pre-Proced Time 12:55 ASA Score 3 For ASA 3 and 4: Consider anesthesia and medical clearance. Also, for patients with a history of failed moderate sedation consider anesthesia. Airway Lungs Heart ASA score ASA 1: a normal healthy patient ASA 2: a patient with a mild systemic disease (mid diabetes, controlled hypertension, obesity ASA 3: a patient with a severe systemic disease that limits activity (angina, COPD, prior Myocardial infarction) ASA 4: a patient with an incapacitating disease that is a constant threat to life (CHF, renal failure) ASA 5: a moribund patient not expected to survive 24 hrs. (ruptured aneurysm) ASA 6: a declared brain- patient whose organs are being harvested. For emergent operations, add the letter E after the classification Mallampati Classification Grade 2 Sedation Plan Analgesia, Amnesia, Plan communicated to team members, Discussed options with patient/fam, Discussed risks with patient/fam The patient is an appropriate candidate to undergo the planned procedure, sedation, and anesthesia. The patient immediately re-assessed prior to indication. PUSHPA POTTER MD FACP FAC CCDS Jan 17, 2021 12:55
[~2021-01-17 13:00] MED LIST changes: +BUSP10TA95 PO; +HEParin (CATH LAB) 2,000 ML IV ONE; +LIDOCAINE 1% INJ 20 ML 20 ML VIAL ONE; +MIDAZOLAM 5 MG/5 ML (VERSED) VIAL ONE; +NS IV 1000 ML 1,000 ML IV SCH; +NS IV 1000 ML 1,000 ML ONE; +ONDANSETRON 4 MG/2 ML (SDV) Z0FRAN ONE; -REGADENOSON 0.4 MG/5 ML SYR (LEXISCAN) IV ONE; +fentaNYL INJ 100 MCG/2 ML AMP ONE
[2021-01-17] MEDS ORDERED: NS IV 1000 ML 1,000 ML IV SCH (13:30)
[2021-01-17] MEDS ORDERED: PATIENT MAY USE OWN MEDS, ALL PO SCH (13:30)
--- NOTE | 2021-01-17 13:30 | Discharge Inst-Post CATH ---
Discharge Inst-CATH/EP Post Cardiac Cath/EP D/C Inst Follow Up/Plan F/u with Dr Barnes in 2 weeks ACTIVITY * Go Home directly and rest. * Limit activity of the leg (or wrist if it was used) for 7 days including aerobics, swimming, jogging, bicycling, etc. * Restrict stair-climbing for 7 days if possible, if not, climb up with your n on-cath leg, then bring together on the same step. * Avoid lifting, pushing, pulling or excessive movement of the affected ex tremity for 7 days. * Customary sexual activity may be resumed after 2 days-use caution not to use a position that strains or causes pain to the affected extremity. * No driving for 24 hours. * NO SMOKING. * Avoid straining for bowel movements for 7 days. * Gentle walking on level ground is allowed. * Returning to work will depend on the type of procedure and the results. Your doctor will discuss this with you. CALL YOUR DOCTOR FOR ANY OF THE FOLLOWING: *If bleeding from the puncture site occurs- Apply gentle pressure to site with clean cloth and call your doctor or EMS. * If a knot or lump forms under the skin, increases in size, or causes pain. * If bruising appears to be worsening or moving further down your leg instead of disappearing. * Temperature above 101 F. CARE OF YOUR GROIN INCISION; * Bruising or purple discoloration of the skin near the puncture site is common. * You may shower only, no bathtub bathing for 5 days. Be careful to avoid slipping as your leg may feel stiff. * If a closure device was used on your femoral artery, please see the attached guide regarding care of the device and your leg. * Leave dressing on FOR 24 hours. CARE OF YOUR WRIST INCISION; * Bruising or purple discoloration of the skin near the puncture site is common. * You may shower. * DO NOT submerge wrist. * Leave dressing on FOR 24 hours. PUSHPA BARNES MD FACP FAC CCDS Jan 17, 2021 13:29
--- NOTE | 2021-01-17 13:30 | Discharge Inst-Cardiology ---
Discharge Inst-Cardiac Discharge Medications Continued Medications: Albuterol Sulfate (Proair Hfa) 1 Puff Puff 2 PUFF IH Q6H for shortness of breath, #1 PUFF 1 PUFF = 90 MCG Atorvastatin Calcium (Atorvastatin Calcium) 40 Mg Tablet 40 MG PO DAILY, TAB Buspirone HCl (Buspirone HCl) 10 Mg Tablet 10 MG PO BID, TAB Cetirizine HCl (Zyrtec) 10 Mg Tablet 10 MG PO HS, TAB Cholecalciferol (Vitamin D3) (Vitamin D3) 25 Mcg Capsule 25 MCG PO HS, CAP Famotidine (Acid Arresting Gear Operator (FAMOTIDINE)) 20 Mg Tablet 20 MG PO DAILY, TAB Fluoxetine HCl (Fluoxetine HCl) 40 Mg Capsule 40 MG PO DAILY, CAP Fluticasone Propionate (Fluticasone Propionate) 16 Gm [place].susp 1 SPRAY NSEACH DAILY, SPRAY Ibuprofen (Ibuprofen) 600 Mg Tablet 600 MG PO Q6H PRN for PAIN-MILD, TAB Levothyroxine Sodium (Levothyroxine Sodium) 25 Mcg Tablet 25 MCG PO DAILY Ondansetron HCl (Zofran) 4 Mg Tab 4 MG PO Q6H PRN for NAUSEA/VOMITING, TAB Propranolol HCl (Propranolol HCl) 20 Mg Tablet 20 MG PO BID, TAB PUSHPA POTTER MD FACP FAC CCDS Jan 17, 2021 13:30
--- NOTE | 2021-01-17 13:38 | CARDIAC CATHETERIZATION ---
DATE OF SERVICE: 01/17/2021 CARDIAC CATHETERIZATION REPORT INDICATION FOR PROCEDURE: The patient is a 50-year-old lady, who has been experiencing chest discomfort and shortness of breath and a recent stress test was indicative of ischemia. Cardiac catheterization was carried out after having obtained an informed consent. DESCRIPTION OF PROCEDURE: She was brought to cardiac catheterization laboratory in a fasting state. Right groin was prepared and draped in the usual sterile fashion. Lidocaine 1% was used for local anesthesia. Modified Seldinger technique was used to advance a 5-Syrian sheath in the right femoral artery, 5-Syrian JL3.5 catheter was used for left coronary angiography. A 5-Syrian JR4 catheter was used for right coronary angiography, a 5-Syrian pigtail catheter was used for left heart catheterization and left ventricular angiography. Angiography of the right femoral artery was carried out through the sheath at the beginning of the procedure. At the end of the procedure, Mynx was used to achieve hemostasis following sheath removal. She tolerated the procedure well. HEMODYNAMICS: Left ventricular end-diastolic pressure following coronary angiography was 13 mmHg. There was no significant pressure gradient on pullback across the aortic valve. Ascending aortic pressure was 126/72 with a mean of 96 mmHg. CORONARY ANGIOGRAPHY: Left main coronary artery, left anterior descending artery, left circumflex artery, right coronary artery does not exhibit angiographically significant disease. Right coronary artery is dominant. LEFT VENTRICULAR ANGIOGRAPHY: Left ventricular angiography was carried out in the right anterior oblique projection. Global left ventricular systolic function is normal. No regional wall motion abnormality was seen. Left ventricular ejection fraction is approximately 60%. DISCUSSION AND RECOMMENDATIONS: Based on results of the study, chest discomfort does not appear to be of cardiac origin. Continuing risk factor modification is advised. Outpatient followup is advised. The myocardial perfusion imaging study appears to have been false positive. CONCLUSIONS: 1. No angiographically significant coronary artery disease. 2. Normal global left ventricular systolic function with an ejection fraction of approximately 60%. 3. Left ventricular end-diastolic pressure is at the high end of normal. Job ID: [id number] DocumentID: [id number] Dictated Date: 01/17/2021 13:27:22 [employer] Date: 01/17/2021 13:37:49 Dictated By: PUSHPA POTTER MD, MA, FACP, FACC,
[2021-01-17 16:55] VITALS: BP 134/82
== END 2021-01-17 16:55 | disposition home or self-care (01) ==
LOC: CATH 13:00 → SDC 13:53 → CATH 16:55
PROVIDERS: ATTEND Internal Medicine Cardiovascular Disease
DX: R07.89 Other chest pain (principal); R06.02 Shortness of breath; K21.9 Gastro-esophageal reflux disease without esophagitis; R00.2 Palpitations; R06.09 Other forms of dyspnea; I73.9 Peripheral vascular disease, unspecified; Z79.899 Other long term (current) drug therapy; Z79.51 Long term (current) use of inhaled steroids; Z88.5 Allergy status to narcotic agent; Z88.8 Allergy status to other drugs, medicaments and biological substances; Z79.890 Hormone replacement therapy; Z90.710 Acquired absence of both cervix and uterus
CPT/HCPCS: 80053; 80061; 85027; 85610; 85730; 87081; 93458; C1760; C1894; 36415

== ENCOUNTER → 2021-07-18 | Outpatient (CLI) | payer OTHER ==
[~2021-07-18] MED LIST changes: -HEParin (CATH LAB) 2,000 ML IV ONE; -LIDOCAINE 1% INJ 20 ML 20 ML VIAL ONE; -MIDAZOLAM 5 MG/5 ML (VERSED) VIAL ONE; -NS IV 1000 ML 1,000 ML IV SCH; -NS IV 1000 ML 1,000 ML ONE; -OMEP40CA27 PO; +OMEP40CA6 PO; -ONDANSETRON 4 MG/2 ML (SDV) Z0FRAN ONE; -fentaNYL INJ 100 MCG/2 ML AMP ONE
--- NOTE | 2021-07-18 15:04 | Diagnostic Imaging Report ---
PROCEDURE: MR imaging of the brain without contrast. TECHNIQUE: Multiplanar, multisequence MR imaging of the brain was performed without contrast. INDICATION: Headaches. FINDINGS: Ventricles and sulci are within normal limits. No diffusion restriction is identified. The normal expected flow-voids within the carotid siphons are seen. There is no sulcal effacement or midline shift. No acute intra-axial or extra-axial hemorrhage is detected. Corpus callosum is unremarkable. Sella and parasellar structures are unremarkable. IMPRESSION: Unremarkable noncontrast MRI of the brain. Dictated by: Dictated on workstation # [id number]
== END ==
LOC: RAD 14:00
PROVIDERS: ATTEND Pediatrics
DX: R51.9 Headache, unspecified (principal)
CPT/HCPCS: 70551

== ENCOUNTER 2023-02-08 12:47 | Outpatient (CLI) | payer OTHER ==
[~2023-02-08 12:47] MED LIST changes: +ALBU8.5H6 IH; -FLUO10CA31 PO; +FLUO10CA33 PO; -RT-ALBUINH IH
== END 2023-02-08 13:15 ==
LOC: SLEEP 12:47
PROVIDERS: ATTEND Otolaryngology Otolaryngology/Facial Plastic Surgery
DX: G47.33 Obstructive sleep apnea (adult) (pediatric) (principal); I10 Essential (primary) hypertension
CPT/HCPCS: G0399